=== PATIENT | male | born 1975 | race Caucasian/White ===

== ENCOUNTER 2024-07-23 03:17 | Emergency (ER) | payer SELFPAY ==
[~2024-07-23] VITALS: Ht 157.5 cm; Wt 86.2 kg
[2024-07-23 03:21] VITALS: PULSE 85; RESP 19; TEMP 97.8; O2SAT 98
[2024-07-23] MEDS ORDERED: CEPHALEXIN500 MG PO (03:21)
[2024-07-23] MEDS ORDERED: KETOROLAC TROME10 MG PO (03:22)
[2024-07-23] MEDS: FLUORESCEIN SOD(OPTH) 1 MG STRP OP ONE (03:35)
[2024-07-23] MEDS: TETRACAINE HCL 0.5% OPTH SOLN 4 ML BTL OP ONE (03:36)
== END 2024-07-23 03:40 | disposition home or self-care (01) ==
LOC: ER 03:20
DX: H57.13 Ocular pain, bilateral (principal); H10.9 Unspecified conjunctivitis
CPT/HCPCS: 99282